=== PATIENT | female | born 1985 | race Caucasian/White ===

== ENCOUNTER 2017-11-19 19:08 | Emergency (ER) | payer SELFPAY ==
--- NOTE | 2017-11-19 19:25 | EDM.PDOC ---
ED HPI GENERAL MEDICAL PROBLEM - General Chief Complaint: Genitourinary Problem Stated Complaint: POSSIBLE MISCARRIAGE Time Seen by Provider: 11/19/17 19:15 - History of Present Illness INITIAL COMMENTS - FREE TEXT/NARRATIVE: HISTORY AND PHYSICAL: History of present illness: Patient's a 32-year-old white female who is approximately 6 weeks by dates was not had her first [employer] appointment letter was sent concern about abdominal cramping and vaginal bleeding she denies other concern is been no trauma no other complaints Review of systems: As per history of present illness and below otherwise all systems reviewed and negative. Past medical history: As per history of present illness and as reviewed below otherwise noncontributory. Surgical history: As per history of present illness and as reviewed below otherwise noncontributory. Social history: No reported history of drug or alcohol abuse. Family history: As per history of present illness and as reviewed below otherwise noncontributory. Physical exam: HEENT: Atraumatic, normocephalic, pupils reactive, negative for conjunctival pallor or scleral icterus, mucous membranes moist, throat clear, neck supple, nontender, trachea midline. Lungs: Clear to auscultation, breath sounds equal bilaterally, chest nontender. Heart: S1S2, regular, negative for clicks, rubs, or JVD. Abdomen: Soft, nondistended, nontender. Negative for masses or hepatosplenomegaly. Negative for costovertebral tenderness. Pelvis: Stable nontender. Genitourinary: Deferred. Rectal: Deferred. Extremities: Atraumatic, negative for cords or calf pain. Neurovascular unremarkable. Neuro: Awake, alert, oriented. Cranial nerves II through XII unremarkable. Cerebellum unremarkable. Motor and sensory unremarkable throughout. Exam nonfocal. Diagnostics: CBC ABO Rh quantitative beta pelvic ultrasound Therapeutics: None Impression: #1 threatened Definitive disposition and diagnosis as appropriate pending reevaluation and review of above. Pelvic Pain Score (Numeric/FACES): 4 - Related Data Allergies Allergy/AdvReac Type Severity Reaction Status Date / Time No Known Allergies Allergy Verified 11/19/17 19:20 Home Meds: Home Meds . [No Known Home Meds] 11/19/17 [History] ED ROS GENERAL - Review of Systems Review Of Systems: ROS reveals no pertinent complaints other than HPI. ED EXAM, GENERAL - Physical Exam Exam: See Below (see dictation) Course - Vital Signs Text/Narrative:: Had a lengthy discussion with patient and regarding nondiagnostic ultrasound at this point we did discuss all possibilities including spontaneous tubal threatened early intrauterine she's had an unremarkable emergency department course her labs are unremarkable her quantitative beta is in the nonischemic ruba zone at approximately 1200 they clearly understand the need for close follow-up vaginal rest repeat quantitative Betadine returning for persistent pain or bleeding as discussed. Last Recorded V/S: Last Vital Signs Temp 35.9 C 11/19/17 19:26 Pulse 69 11/19/17 19:26 Resp 18 11/19/17 19:26 BP 116/65 11/19/17 19:26 Pulse Ox 98 11/19/17 19:26 - Orders/Labs/Meds Orders: Active Orders 24 hr Category Date Time Status OB 1st Tri Sgl 1st Gest [US] Stat Exams 11/19/17 19:26 Taken Labs: Laboratory Tests 11/19/17 11/19/17 11/19/17 Range/Units 19:39 19:39 19:39 WBC 12.06 H (4.0-11.0) K/uL RBC 4.46 (4.30-5.90) M/uL Hgb 13.4 (12.0-16.0) g/dL Hct 39.3 (36.0-46.0) % MCV 88.1 (80.0-98.0) fL MCH 30.0 (27.0-32.0) pg MCHC 34.1 (31.0-37.0) g/dL RDW Std Deviation 40.7 (28.0-62.0) fl RDW Coeff of Charles 13 (11.0-15.0) % Plt Count 223 (150-400) K/uL MPV 9.20 (7.40-12.00) fL Neut % (Auto) 67.5 (48.0-80.0) % Lymph % (Auto) 26.8 (16.0-40.0) % [place] % (Auto) 4.3 (0.0-15.0) % Eos % (Auto) 1.2 (0.0-7.0) % Baso % (Auto) 0.2 (0.0-1.5) % Neut # (Auto) 8.1 H (1.4-5.7) K/uL Lymph # (Auto) 3.2 H (0.6-2.4) K/uL [place] # (Auto) 0.5 (0.0-0.8) K/uL Eos # (Auto) 0.1 (0.0-0.7) K/uL Baso # (Auto) 0.0 (0.0-0.1) K/uL Nucleated RBC % 0.0 /100WBC Nucleated RBCs # 0 K/uL HCG, Quant 1432.0 mIU/mL Blood Type O POSITIVE Departure - Departure Time of Disposition: 21:45 Disposition: Home, Self-Care 01 Condition: Good Clinical Impression: Threatened - Discharge Information Referrals: Orlando Beckwith MD [Primary Care Provider] - Forms: ED Department Discharge Additional Instructions: The following information is given to patients seen in the emergency department who are being discharged to home. This information is to outline your options for follow-up care. We provide all patients seen in our emergency department with a follow-up referral. The need for follow-up, as well as the timing and circumstances, are variable depending upon the specifics of your emergency department visit. If you don't have a primary care physician on staff, we will provide you with a referral. We always advise you to contact your personal physician following an emergency department visit to inform them of the circumstance of the visit and for follow-up with them and/or the need for any referrals to a consulting specialist. The emergency department will also refer you to a specialist when appropriate. This referral assures that you have the opportunity for followup care with a specialist. All of these measure are taken in an effort to provide you with optimal care, which includes your followup. Under all circumstances we always encourage you to contact your private physician who remains a resource for coordinating your care. When calling for followup care, please make the office aware that this follow-up is from your recent emergency room visit. If for any reason you are refused follow-up, please contact the [facility] emergency department at and asked to speak to the emergency department charge nurse. Follow-up CONTACT [employer] he has discussed quantitative beta 48 hours as discussed return for pain or bleeding as discussed vaginal rest as discussed - My Orders Last 24 Hours: My Active Orders 11/19/17 19:26 OB 1st Tri Sgl 1st Gest [US] Stat - Assessment/Plan Last 24 Hours: My Active Orders 11/19/17 19:26 OB 1st Tri Sgl 1st Gest [US] Stat
--- NOTE | 2017-11-21 15:40 | US ---
EXAM DATE: 11/19/17 PATIENT'S AGE: 32 Patient: ROD FALK Facility: [place], [place] Site . Site : [id number] Study: US OB Pelvis [id number] 8:49:43 PM Ordering Physician: Ilia Love Final Report: INDICATION: abd pain/vag bleeding, pt states 6-7 weeks by dates HISTORY: Abdominal pain. Vaginal bleeding. COMPARISON: None. TECHNIQUE: Pelvic ultrasound. Endovaginal imaging of the pelvis was obtained to better evaluate the adnexa and endometrial complex. Color Doppler was performed to evaluate blood flow to the ovaries. FINDINGS: The cervix measures 3.6 cm in dimension. Uterine corpus measures 7.9 x 5.0 x 6.1 cm. There is a fibroid to the right of midline which is hypoechoic, measuring 4.3 x 3.3 x 3.1 cm. There is a 2nd lesion which appears as an intramural leiomyoma, measuring 3.1 x 2.1 x 2.3 cm. This is seen adjacent to the endometrial complex, but does not exert mass effect. The endometrial complex measures 9-10 mm in thickness. There is a cystic structure about the endometrial complex, which could represent a intrauterine gestational sac. There is no yolk sac or embryo. This structure measures 0.4 x 0.5 x 0.3 cm. Right ovary measures 2.0 x 2.8 x 1.2 cm. Left ovary measures 2.0 x 2.8 x 2.0 cm. There is no suspicious adnexal mass. No significant free fluid in the pelvis. IMPRESSION: 1. Cystic structure about the endometrial complex, which could represent an IUP. 2. There is no pole or yolk sac. 3. No extraovarian adnexal mass. 4. Exam is compatible with a of uncertain location. 5. Suggest correlation with serum beta HCG, and both sonographic and serologic followup are advised. Dictated by Orlando Thomas MD @ 11/19/2017 9:31:01 PM Dictated by: Orlando Thomas MD @ 11/19/2017 21:31:23 (Electronic Signature) Report Signed by Proxy. LINNEA
== END 2017-11-19 22:04 | disposition home or self-care (01) ==
LOC: MW.ED 19:08
DX: O20.0 Threatened abortion (principal); Z3A.01 Less than 8 weeks gestation of pregnancy
CPT/HCPCS: 36415; 76801; 76801-26; 84702; 85025; 86900; 86901; 99284; 99284-25

== ENCOUNTER 2022-09-25 02:14 | Emergency (ER) | payer OTHER ==
[2022-09-25] MEDS ORDERED: Sodium Chloride 0.9% 10 ML Syringe FLUSH PRN (02:36)
[2022-09-25] MEDS ORDERED: Sodium Chloride 0.9% 2.5 ML Syringe FLUSH PRN (02:36)
[2022-09-25 03:33] LABS: CARBON DIOXIDE,CO2 23.3 mmol/L (21.0-32.0); POTASSIUM,K 3.4 mmol/L (3.5-5.1)
== END 2022-09-25 06:20 | disposition home or self-care (01) ==
LOC: MW.ED 02:14
DX: O03.9 Complete or unspecified spontaneous abortion without complication (principal)
CPT/HCPCS: 36415; 76815; 76815-26; 80053; 84702; 85025; 85610; 85730; 86850; 86900; 86901; 99284

== ENCOUNTER → 2024-11-04 | Day surgery (SDC) | payer OTHER ==
[~2024-11-04] MED LIST: Acetaminophen 325 MG Tab PO PRN; Docusate Sodium 100 MG Cap PO PRN; Ketamine HCL/NACL, ISO-OSM 50 MG/5 ML Syringe ONE; Lidocaine 1% with EPINEPHrine 1:100,000 10 ML MDV ONE; Lidocaine 2% 11 ML Jelly Filled Syringe ONE; Methylergonovine 0.2 MG/1 ML Amp ONE; Midazolam 1 MG/ML 2 ML SDV ONE; Ondansetron 4 MG/2 ML SDV IVPUSH PRN; Ondansetron 4 MG/2 ML SDV ONE; Sodium Chloride 0.9% 10 ML Syringe FLUSH PRN; Sodium Chloride 0.9% 2.5 ML Syringe FLUSH PRN; Sodium Chloride 0.9% 20 ML SDV IV PRN; diphenhydrAMINE 25 MG Cap PO PRN; fentaNYL 250 MCG/5 ML SDV ONE; propofoL 500 MG/50 ML 50 ML ONE
[2024-11-04 11:19] LABS: BASOPHILS ABSOLUTE AUTO 0.04 K/uL (0.00-0.20); BASOPHILS PERCENT AUTO 0.3 % (0.0-1.0); EOSINOPHILS ABSOLUTE AUTO 0.06 K/uL (0.00-0.45); EOSINOPHILS PERCENT AUTO 0.4 % (0.0-6.0); HEMATOCRIT 22.8 % (37.0-47.0); HEMOGLOBIN 8.1 g/dL (12.0-16.0); IMMATURE GRAN ABSOLUTE AUTO 0.06 K/uL (0.00-0.05); IMMATURE GRAN PERCENT AUTO 0.4 % (0.0-0.4); LYMPHOCYTES ABSOLUTE AUTO 3.55 K/uL (1.00-4.80); LYMPHOCYTES PERCENT AUTO 22.6 % (24.0-44.0); MEAN CORPUSCULAR HGB CONC 35.5 g/dL (32.0-36.0); MEAN CORPUSCULAR VOLUME 84.4 fL (83.0-99.0); MEAN PLATELET VOLUME 9.3 fL (9.4-12.3); MONOCYTES ABSOLUTE AUTO 0.51 K/uL (0.00-0.80); MONOCYTES PERCENT AUTO 3.3 % (0.0-8.0); NEUTROPHILS ABSOLUTE AUTO 11.47 K/uL (1.80-7.70); PLATELET COUNT,PLT 242 K/uL (150-400); WHITE BLOOD CELL COUNT,WBC 15.69 K/uL (3.9-11.3)
[2024-11-04 11:51] LABS: LACTIC ACID 1.7 mmol/L (0.4-2.0)
[2024-11-04 12:21] LABS: A/G RATIO 0.9 (0.9-1.6); ALBUMIN 2.7 g/dL (3.4-5.0); BILIRUBIN TOTAL 0.5 mg/dL (0.2-1.0); CALCIUM 8.5 mg/dL (8.5-10.1); CARBON DIOXIDE,CO2 24.5 mmol/L (21.0-32.0); CREATININE 0.8 mg/dL (0.6-1.0); EST CRCL DRUG DOSING (CG) 83.27 mL/min; POTASSIUM,K 4.1 mmol/L (3.5-5.1); PROTEIN TOTAL,TP 5.8 g/dL (6.4-8.2)
[2024-11-04 13:22] LABS: BASOPHILS ABSOLUTE AUTO 0.04 K/uL (0.00-0.20); BASOPHILS PERCENT AUTO 0.3 % (0.0-1.0); EOSINOPHILS ABSOLUTE AUTO 0.04 K/uL (0.00-0.45); EOSINOPHILS PERCENT AUTO 0.3 % (0.0-6.0); HEMATOCRIT 20.7 % (37.0-47.0); HEMOGLOBIN 7.3 g/dL (12.0-16.0); IMMATURE GRAN ABSOLUTE AUTO 0.06 K/uL (0.00-0.05); IMMATURE GRAN PERCENT AUTO 0.4 % (0.0-0.4); LYMPHOCYTES ABSOLUTE AUTO 3.69 K/uL (1.00-4.80); LYMPHOCYTES PERCENT AUTO 25.5 % (24.0-44.0); MEAN CORPUSCULAR HEMOGLOBIN 29.6 pg (28.0-32.0); MEAN CORPUSCULAR HGB CONC 35.3 g/dL (32.0-36.0); MEAN CORPUSCULAR VOLUME 83.8 fL (83.0-99.0); MEAN PLATELET VOLUME 8.8 fL (9.4-12.3); MONOCYTES ABSOLUTE AUTO 0.53 K/uL (0.00-0.80); MONOCYTES PERCENT AUTO 3.7 % (0.0-8.0); NEUTROPHILS ABSOLUTE AUTO 10.09 K/uL (1.80-7.70); NEUTROPHILS PERCENT AUTO 69.8 % (41.0-71.0); PLATELET COUNT,PLT 211 K/uL (150-400); RED BLOOD CELL COUNT 2.47 M/uL (4.10-5.30); WHITE BLOOD CELL COUNT,WBC 14.45 K/uL (3.9-11.3)
[2024-11-04] MEDS: Tranexamic Acid in NACL,ISO-OS 1,000 MG in Premix Bag 1 BAG IV ONE (13:54)
[2024-11-04] MEDS: Doxycycline 100 MG Cap PO ONE (15:15)
[2024-11-04] MEDS: Lactated Ringers 1,000 ML IV SCH (18:56)
[2024-11-04] MEDS: Ketorolac 30 MG/ML SDV IVPUSH SCH (22:17)
[2024-11-04] MEDS: Famotidine 20 MG Tab PO SCH (22:18)
[2024-11-05] MEDS: Ketorolac 30 MG/ML SDV IVPUSH SCH (04:28)
== END ==
LOC: MW.ED 10:08 → MW.SDS 14:52 → MW.MS 16:15 → UNDOADMOB 16:15 → UNDODISOB 11-05 11:40
PROVIDERS: ATTEND Obstetrics & Gynecology
DX: O03.1 Delayed or excessive hemorrhage following incomplete spontaneous abortion (principal); D62 Acute posthemorrhagic anemia
CPT/HCPCS: 36415; 36430; 59820; 71045; 76801; 80053; 83605; 84702; 85025; 86850; 86900; 86901; 86920; 87040; 93005; 96374; 99285; A9270; J1885; J2210; J2250; J2405; J2704; J3010; J7120; P9016; C1729; J3490